=== PATIENT | female | born 1990 | race African-American/Black ===

== ENCOUNTER 2023-08-05 19:22 | Emergency (ER) | payer MEDICAID ==
[~2023-08-05] VITALS: Ht 165.1 cm; Wt 95.4 kg
[~2023-08-05 19:22] MED LIST: CLON0.2T PO
[2023-08-05 19:35] VITALS: BP 180/128; PULSE 87; RESP 16; TEMP 97.8; O2SAT 100
[2023-08-05] MEDS ORDERED: cloNIDine HCL 0.1 MG TAB PO ONE (19:45)
[2023-08-05 20:10] LABS: Basophils # (auto) 0.1 10 ^3/uL (0-0.2); Basophils % (auto) 0.5 % (0.0-2.0); Eosinophils # (auto) 0.2 10 ^3/uL (0-0.8); Eosinophils % (auto) 1.1 % (0.0-7.0); Hematocrit 38.7 % (36.0-46.0); Hemoglobin 12.8 g/dL (12.2-16.2); Lymphocytes # (auto) 3.5 10 ^3/uL (0.4-5.4); Lymphocytes % (auto) 25.1 % (10.0-50.0); Mean Corpuscular Hemoglobin 29.9 pg (28.0-32.0); Mean Corpuscular Volume 90.6 fL (80.0-100.0); Monocytes # (auto) 0.7 10 ^3/uL (0-1.3); Monocytes % (auto) 5.2 % (0.0-12.0); Neutrophils # (auto) 9.6 10 ^3/uL (1.6-8.6); Neutrophils % (auto) 68.1 % (37.0-80.0); Red Blood Cells 4.27 10^6/uL (4.0-5.20); Red Cell Distribution Width 14.9 % (11.8-14.3); White Blood Cell 14.1 10^3/uL (4.4-10.8)
[2023-08-05 20:21] LABS: Alanine Aminotransferase 54 U/L (7-40); Albumin 5.3 g/dL (3.2-4.8); Alkaline Phosphatase 83 U/L (46-116); Anion Gap 8 (5-15); Aspartate Aminotransferase 20 U/L (13-40); BUN/Creatinine Ratio 16.5 (10.0-20.0); Blood Urea Nitrogen 15 mg/dL (9-23); Calcium 10.2 mg/dL (8.7-10.4); Carbon Dioxide 25 mmol/L (20-30); Chloride 105 mmol/L (98-107); Glucose 101 mg/dL (74-106); Sodium 138 mmol/L (136-145)
[2023-08-05 20:22] LABS: Bilirubin, Total 0.3 mg/dL (0.2-1.0); Total Protein 8.4 g/dL (5.7-8.2)
[2023-08-05 20:36] LABS: Urine Bacteria NONE SEEN /hpf (None Seen); Urine Blood 3+ /uL (Negative); Urine Clarity Clear (Clear); Urine Color Yellow (Yellow); Urine Mucus FEW (None Seen); Urine Protein, UAD 1+ (Negative); Urine Specific Gravity 1.018 (1.001-1.035); Urine Urobilinogen Normal (Negative); Urine WBC 42 /hpf (0 - 5)
[2023-08-05] MEDS ORDERED: HYDROcodone-ACET 5/325MG TAB PO ONE (21:30)
[2023-08-05] MEDS ORDERED: ACET300T58 PO (22:38)
[2023-08-05] MEDS ORDERED: NITR-87 PO (22:38)
[2023-08-05] MEDS ORDERED: NITROFURANTOIN 100 mg CAP PO ONE (22:45)
[2023-08-06] MEDS ORDERED: HYDROcodone-ACET 5/325MG TAB PO ONE (01:00)
== END 2023-08-06 01:07 | disposition home or self-care (01) ==
LOC: ER 19:22
DX: N93.8 Other specified abnormal uterine and vaginal bleeding (principal); R10.2 Pelvic and perineal pain; I16.0 Hypertensive urgency; Z88.1 Allergy status to other antibiotic agents
CPT/HCPCS: 36415; 80053; 81001; 84702; 85025; 86850; 86900; 86901

== ENCOUNTER 2024-08-18 22:30 | Emergency (ER) | payer MEDICAID ==
[~2024-08-18] VITALS: Ht 165.1 cm; Wt 97.0 kg
[~2024-08-18 22:30] MED LIST changes: +ACET300T58 PO; +NITR-87 PO
[2024-08-18 22:43] VITALS: BP 153/102; PULSE 107; RESP 18; TEMP 97.8; O2SAT 96
[2024-08-19] MEDS: HYDROcodone-ACET 5/325MG TAB PO ONE (00:35)
[2024-08-19] MEDS ORDERED: CLON0.2T PO (02:02)
== END 2024-08-19 02:12 | disposition home or self-care (01) ==
LOC: ER 22:30
DX: S80.11XA Contusion of right lower leg, initial encounter (principal); Z88.1 Allergy status to other antibiotic agents; Z79.899 Other long term (current) drug therapy; W01.0XXA Fall on same level from slipping, tripping and stumbling without subsequent striking against object, initial encounter; Y93.89 Activity, other specified; Y92.89 Other specified places as the place of occurrence of the external cause; Y99.8 Other external cause status
CPT/HCPCS: 73590